=== PATIENT | female | born 1960 | race Caucasian/White ===

== ENCOUNTER 2016-09-14 08:18 | Emergency (ER) | payer MEDICAID ==
[~2016-09-14] VITALS: Ht 152.4 cm; Wt 54.5 kg
[~2016-09-14 08:18] MED LIST: CIPR500T4 PO; HYDR-3498 PO; METR500T PO; ONDA4TAB35 PO
[2016-09-14 08:23] VITALS: Ht 152.4 cm; Wt 54.5 kg
--- NOTE | 2016-09-14 09:25 | ERD ---
ER Documentation Chief Complaint Date/Time DATE: 09/14/16 TIME: 09:15 Chief Complaint left ring finger pain, eye problems HPI This 56-year-old female who presents to the emergency department today complaining of abdominal information, dizziness and left hand and fourth finger pain. Patient states that yesterday she slammed her finger in a window in the house. States she has some dysuria. Denies any fevers or chills, nausea or vomiting, blurred vision, headache. Denies any syncopal episode. States she has a history of dizziness and has been seen here in the emergency department in the past. She has not taken any medication for it. ROS All systems reviewed and are negative except as per history of present illness. Medications Home Meds Active Scripts Docusate Sodium* (Colace*) 100 Mg Capsule, 100 MG PO TID, #30 CAP Prov:IMELDA DAY PA-C 09/14/16 Polyethylene Glycol* (Miralax*) 17 Gm Powd.pack, 17 GM PO DAILY, #10 Prov:IMELDA DAY PA-C 09/14/16 Acetaminophen* (Tylophen*) 500 Mg Capsule, 1 CAP PO Q6H Y for PAIN AND OR ELEVATED TEMP, #30 CAP Prov:IMELDA DAY PA-C 09/14/16 Ibuprofen* (Motrin*) 600 Mg Tab, 600 MG PO Q6, #30 TAB Prov:IMELDA DAY PA-C 09/14/16 Meclizine Hcl* (Antivert*) 12.5 Mg Tab, 12.5 MG PO Q6H Y for DIZZINESS, #20 TAB Prov:IMELDA DAY PA-C 09/14/16 Ondansetron Hcl* (Zofran* ODT) 4 mg -ODT Tab.disper, 4 MG PO Q6 Y for NAUSEA AND /OR VOMITING, #30 TAB Prov:BRAD SERRATO MD 04/27/15 Hydrocodone Bit-Acetaminophen* (Latexo*) 5-325 Mg Tab, 1 TAB PO Q6 Y for PAIN, # 7 TAB Prov:BRAD SERRATO MD 04/27/15 Metronidazole* (Flagyl*) 500 Mg Tablet, 500 MG PO TID for 7 Days, TAB Prov:BRAD SERRATO MD 04/27/15 Ciprofloxacin Hcl* (Ciprofloxacin Hcl*) 500 Mg Tablet, 500 MG PO BID for 7 Days , TAB Prov:BRAD SERRATO MD 04/27/15 Allergies Allergies: Coded Allergies: No Known Drug Allergy (Verified Allergy, Mild, 04/27/15) PMhx/Soc History of Surgery: No Anesthesia Reaction: No Hx Neurological Disorder: No Hx Respiratory Disorders: No Hx Cardiac Disorders: No Hx Psychiatric Problems: No Hx Miscellaneous Medical Probl: No Hx Alcohol Use: No Hx Substance Use: No Hx Tobacco Use: No Smoking Status: Never smoker Physical Exam Vitals Vital Signs Date Time Temp Pulse Resp B/P Pulse Ox O2 Delivery O2 Flow Rate FiO2 09/14/16 08:23 98.3 64 19 131/76 99 Physical Exam Const: No acute distress Head: Atraumatic Eyes: Normal Conjunctiva. PERRLA. EOM intact. ENT: Normal External Ears, Nose and Mouth. Neck: Full range of motion..~ No meningismus. Resp: Clear to auscultation bilaterally Cardio: Regular rate and rhythm, no murmurs Abd: Soft, non tender, non distended. Normal bowel sounds. No right lower quadrant pain. No left lower quadrant pain. Skin: No petechiae or rashes Back: No midline or flank tenderness MSk: Left hand with no obvious deformity. Mild effusion over left fourth finger. Pain with active range of motion. Pulses 2+. Distal neurovascularly intact. Neur: Awake and alert. No focal neurologic deficits. No gait ataxia. Psych: Normal Mood and Affect Results 24 hrs Laboratory Tests Test 09/14/16 09:46 Bedside Urine pH (LAB) 6.0 Bedside Urine Protein (LAB) Negative Bedside Urine Glucose (UA) Negative Bedside Urine Ketones (LAB) Negative Bedside Urine Blood Trace-intact Bedside Urine Nitrite (LAB) Negative Bedside Urine Leukocyte Esterase (L Negative Current Medications Medications (Trade) Dose Ordered Sig/Mana Route PRN Reason Start Time Stop Time Status Last Admin Dose Admin Meclizine HCl (Antivert) 25 mg ONCE ONCE PO 09/14/16 09:30 09/14/16 09:31 DC 09/14/16 09:48 DIAGNOSTIC IMAGING REPORT Patient: CINDY MADRIGAL : 1960 Age: 56 Sex: F MR #: [id number] DOS: 09/14/16 0000 Ordering MD: IMELDA DAY PA-C Location: [facility] Room/Bed: PROCEDURE: Left hand series CLINICAL INDICATION: Left hand pain. Trauma TECHNIQUE: AP, oblique, and lateral views of the left hand were obtained. COMPARISON: None FINDINGS: No acute fracture or dislocations are seen. The osseous structures are well mineralized. The articular surfaces are normal. No soft tissue abnormalities are seen. IMPRESSION: Unremarkable left hand series. RPTAT: [facility] Physician [place] Date Time Electronically viewed and signed by Abdi Brown Physician on 09/14/2016 09 :41 / CC: IMELDA DAY PA-C Procedures/MDM This is a 56-year-old female who presents the emergency department today with multiple complaints. Patient was complaining of dizziness and therefore did an EKG and UA. She was also complaining of left hand and fourth finger pain after slamming it in a window yesterday. I did obtain images of the left hand EKG read and interpreted by Dr. Lan rate [address] elevation. No QT prolongation. Sinus bradycardia. Low suspicion for acute SD, PE, pericarditis UA is negative for infection. Per the radiology images of the left hand are unremarkable. There is no acute fracture dislocation. Patient has no focal neurologic deficits. She has no gait ataxia. He do not feel the patient requires a head CT scan at this time. Low suspicion for acute hemorrhage, mass, abscess Patient also indicated that she felt her stomach was "inflamed". She has no abdominal pain or swelling on physical exam. I do not feel the patient requires laboratory workup or imaging at this time. Low suspicion for acute surgical abdomen. Patient also indicated she think she is constipated. She will be given a prescription for MiraLAX and Colace. Patient was given meclizine here in the emergency department and symptoms improved. Patient has had no syncopal episode. She does have a history of dizziness and has been seen here in the emergency department in the past. Low suspicion for anemia or electrolyte imbalance as cause of dizziness. Discussed the patient with Dr. Lan and he is in agreement with the plan. Departure Diagnosis: Primary Impression: Multiple complaints Condition: IMELDA Cornelius PA-C Sep 14, 2016 09:25
[2016-09-14] MEDS ORDERED: MECLIZINE 12.5 MG TAB PO ONE (09:30)
--- NOTE | 2016-09-14 09:41 | RADRPT ---
PROCEDURE: Left hand series CLINICAL INDICATION: Left hand pain. Trauma TECHNIQUE: AP, oblique, and lateral views of the left hand were obtained. COMPARISON: None FINDINGS: No acute fracture or dislocations are seen. The osseous structures are well mineralized. The artic ular surfaces are normal. No soft tissue abnormalities are seen. IMPRESSION: Unremarkable left hand series. RPTAT: [facility] Physician [place] Date Time Electronically viewed and signed by Abdi Brown Physician on 09/14/2016 09:41 /
[2016-09-14 09:47] LABS: URINE BLOOD (Dip) POC Trace-intact (NEGATIVE)
[2016-09-14] MEDS ORDERED: IBUP-1542 PO (10:58)
[2016-09-14] MEDS ORDERED: MECL12.574 PO (10:58)
[2016-09-14] MEDS ORDERED: DOCU-144 PO (10:59)
[2016-09-14] MEDS ORDERED: ACET500C5 PO (10:59)
[2016-09-14] MEDS ORDERED: POLY17PO6 PO (10:59)
[2016-09-14 11:09] VITALS: BP 140/84; PULSE 68; RESP 18
== END 2016-09-14 11:10 | disposition home or self-care (01) ==
LOC: FTE 08:18
DX: S69.92XA Unspecified injury of left wrist, hand and finger(s), initial encounter (principal); S39.91XA Unspecified injury of abdomen, initial encounter; R42 Dizziness and giddiness; W23.1XXA Caught, crushed, jammed, or pinched between stationary objects, initial encounter; Y92.009 Unspecified place in unspecified non-institutional (private) residence as the place of occurrence of the external cause
CPT/HCPCS: 73130; 81003; 93005; Z7502; Z7610